=== PATIENT | female | born 1950 | race Hispanic/Latino ===

== ENCOUNTER 2019-02-08 12:02 | Emergency (ER) | payer OTHER ==
[~2019-02-08] VITALS: Ht 160 cm; Wt 74.4 kg
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
== END 2019-02-08 12:15 | disposition home or self-care (01) ==
LOC: FSED 12:02
DX: S00.83XA Contusion of other part of head, initial encounter (principal); W20.8XXA Other cause of strike by thrown, projected or falling object, initial encounter; Y92.008 Other place in unspecified non-institutional (private) residence as the place of occurrence of the external cause; I10 Essential (primary) hypertension; E01.8 Other iodine-deficiency related thyroid disorders and allied conditions; F33.0 Major depressive disorder, recurrent, mild
CPT/HCPCS: 70450; 99283